=== PATIENT | male | born 1990 | race Caucasian/White ===

== ENCOUNTER 2019-11-13 20:37 | Emergency (ER) | payer SELFPAY ==
[~2019-11-13] VITALS: Ht 182.9 cm; Wt 105.1 kg
[2019-11-13 20:39] VITALS: BP 145/72
--- NOTE | 2019-11-13 20:47 | NUR ---
REPORTS CLOGGED LEFT EAR, HAVING DIFFICULTY HEARING.
[2019-11-13] MEDS ORDERED: CARBAMIDE PEROXIDE EAR DROPS 6.5%, 15ML ONE (21:08)
[2019-11-13] MEDS ORDERED: CARBAMIDE PEROXIDE EAR DROPS 6.5%, 15ML LEFT EAR ONE (21:30)
--- NOTE | 2019-11-13 21:46 | NUR ---
LEFT EAR IRRIGATED. PROVIDER AWARE.
== END 2019-11-13 22:03 | disposition home or self-care (01) ==
LOC: ED 21:36
DX: H61.22 Impacted cerumen, left ear (principal)
CPT/HCPCS: 69209; 99282